=== PATIENT | male | born 2000 | race Caucasian/White ===

== ENCOUNTER 2023-01-23 01:18 | Outpatient (CLI) | payer BC, SELFPAY ==
[2023-01-23 15:45] LABS: HCT 44.8 % (40.0-50.0); HGB 15.1 g/dL (13.5-17.5); MCH 30.1 pg (27.0-33.0); MCHC 33.7 % (32.0-36.0); MCV 89 fL (80-95); Platelet Count 288 10^3/uL (130-400); RBC 5.02 10^6/uL (4.36-5.78); RDW 12.3 % (11.8-14.1); RDW-SD 40.1 fL; WBC 9.48 10^3/uL (4.4-10.8)
[2023-01-23 16:34] LABS: ALT 43 U/L (16-63); AST 18 U/L (15-37); Albumin 4.1 g/dL (3.4-5.0); Alkaline Phosphatase 87 U/L (46-116); Anion Gap 8.4 mmol/L (3-11); BUN 10 mg/dL (7-18); Bilirubin, Total 0.5 mg/dL (0.2-1.0); CO2 27.6 mmol/L (21.0-32.0); Calcium 9.1 mg/dL (8.5-10.1); Chloride 104 mmol/L (98-107); Estimated GFR 108.46 (mL/min/1.73m2); Ferritin 124 ng/mL (26-388); Glucose 87 mg/dL (74-106); Potassium 3.7 mmol/L (3.5-5.1); Sodium 140 mmol/L (136-145); Total Protein 7.7 g/dL (6.4-8.2)
[2023-01-26 11:10] LABS: Transferrin 254 mg/dL (201-352)
== END 2023-01-23 01:19 | disposition home or self-care (01) ==
LOC: LBO 01:18
PROVIDERS: PCP Nurse Practitioner Family; Visit Provider Nurse Practitioner Family
DX: F41.9 Anxiety disorder, unspecified (principal); Z83.49 Family history of other endocrine, nutritional and metabolic diseases
CPT/HCPCS: 36415; 80053; 85027; 82728; 84466